=== PATIENT | male | born 1980 | race Caucasian/White ===

== ENCOUNTER 2019-09-30 18:20 | Observation (INO) | payer MEDICAID, OTHER ==
[2019-09-30] VITALS (8 sets, daily range): BP systolic 113–136; BP diastolic 69–83
[~2019-09-30] VITALS: Ht 180.3 cm; Wt 75.9 kg
--- NOTE | 2019-09-30 19:28 | NUR ---
PT HAD 1 MG IV DILAUDED AND 4 MG OF ZOFRAN PRIOR TO TRANSFER (17:17). BOTH EFFECTIVE, PT REPORTS NO PAIN OR NAUSEA AT THIS TIME.
[2019-09-30] MEDS ORDERED: NO HOME MEDS (19:34)
[2019-09-30] MEDS ORDERED: piperacillin/tazo 3.375gm/50ml 50 ML IV ONE (19:45)
--- NOTE | 2019-09-30 19:47 | NUR ---
PT WILL BE GOING TO SURGERY AT 2129. EKG ORDERED.
[2019-09-30] MEDS ORDERED: ondansetron/PF 4mg/2ml inj IV PRN ×2 (20:00→21:55)
[2019-09-30] MEDS ORDERED: morphine 2 MG/ML inj. syringe IV PRN (20:00)
[2019-09-30] MEDS ORDERED: morphine 4 MG/ML inj SYRINge IV PRN (20:00)
[2019-09-30] MEDS ORDERED: labetalol 20mg/4ml (5mg/ml) syringe IV PRN (20:00)
[2019-09-30] MEDS ORDERED: hydrALAZINE 20mg/ml inj. IV PRN (20:00)
[2019-09-30] MEDS ORDERED: ringers solution, lacted 1,000 ML IV SCH (20:00)
[2019-09-30] MEDS ORDERED: fentaNYL/PF 50MCG/1 ML 2ML syringe IV PRN ×2 (20:00)
[2019-09-30] MEDS ORDERED: ringers solution, lacted 1,000 ML IV ONE (20:00)
--- NOTE | 2019-09-30 20:22 | NUR ---
REPORT CALLED TO [facility] IN [facility].
[2019-09-30] MEDS ORDERED: LIDOcaine 1% 30ml preserv. free vial ONE (20:47)
[2019-09-30] MEDS ORDERED: BUPIVAcaine/PF 2.5 mg/ml (0.25%) 30ml vial ONE (20:47)
[2019-09-30] MEDS ORDERED: midazolam 2 mg/2 ml injection ONE (20:51)
[2019-09-30] MEDS ORDERED: fentaNYL/PF 50MCG/1 ML 2ML syringe ONE (20:51)
[2019-09-30] MEDS ORDERED: LIDOcaine 2% (20mg/ml) 5ml vial ONE (20:53)
[2019-09-30] MEDS ORDERED: propofol inj 20 ML IV ONE (20:53)
[2019-09-30] MEDS ORDERED: rocuronium 10mg/ml inj IV ONE (20:54)
[2019-09-30] MEDS ORDERED: neostigmine methylsulfate 1 MG/ML 10ml vial ONE (20:54)
[2019-09-30] MEDS ORDERED: ondansetron/PF 4mg/2ml inj ONE (20:54)
[2019-09-30] MEDS ORDERED: dexamethasone sod phosphate 4mg/ml inj. ONE (20:54)
[2019-09-30] MEDS ORDERED: glycopyrrolate 0.2mg/ml inj ONE (20:54)
[2019-09-30] MEDS ORDERED: Potassium Cl inj 20 MEQ in ringers solution, lacted 1,000 ML IV SCH (21:54)
[2019-09-30] MEDS ORDERED: HYDROcodone/acetaminophen 5mg/325mg tablet PO PRN (21:55)
[2019-09-30] MEDS ORDERED: acetaminophen 1,000mg/100ml IV 100 ML IV ONE (21:55)
--- NOTE | 2019-09-30 22:05 | NUR ---
Received from OR via SURGICAL BED, accompanied by Anesthesiologist DR PEDERSEN and report given by Anesthesiolgist. PT PLACED ON O2 AND MONITOR, S/P LAP APPY, GENERAL ANESTH, PT HAS 3 LARGE BANDIDS TO ABD ALL CDI, ABD SOFT, DENIES ANY PAIN OR NAUSEA AT THIS TIME. WILL CONT TO ASSESS.
--- NOTE | 2019-09-30 22:30 | NUR ---
Patient in room . I have received report from Barbi Schneider RN and had the opportunity to ask questions and assume patient care.
--- NOTE | 2019-09-30 22:35 | NUR ---
Report called to receiving nurse. Transferred via SURGICAL BE TO [id number] . Special Issues communicated to receiving nurse. PT AWAKE AND STATING HE IS HUNGRY, TOLERATING ICE CHIPS AND SIPS OF WATER.
--- NOTE | 2019-09-30 22:40 | NUR ---
Pt transported in personal bed from recovery.
[2019-10-01] VITALS: BP 122/69
[2019-10-01 00:30] VITALS: BP 132/71
[2019-10-01 01:30] VITALS: BP 104/68
[2019-10-01] MEDS: ketorolac trometh. 30mg/ml inj. IV SCH ×2 (02:00→08:00)
[2019-10-01] MEDS: acetaminophen 325mg tablet PO SCH ×2 (02:00→08:00)
[2019-10-01] MEDS: Potassium Cl inj 20 MEQ in ringers solution, lacted 1,000 ML IV SCH ×2 (02:16→08:02)
[2019-10-01 02:30] VITALS: BP 107/65
[2019-10-01 04:22] VITALS: BP 105/65
[2019-10-01] MEDS ORDERED: famotidine/PF 10 mg/ml inj IV ONE (06:00)
--- NOTE | 2019-10-01 06:01 | NUR ---
Problems reprioritized. Patient report given, questions answered & plan of care reviewed with YOLANDA Malik.
--- NOTE | 2019-10-01 06:17 | NUR ---
Problems reprioritized. Patient report given, questions answered & plan of care reviewed with Lizeth Cerna RN.
--- NOTE | 2019-10-01 06:50 | NUR ---
Patient in room [facility]. I have received report from YOLANDA SEO and had the opportunity to ask questions and assume patient care.
[2019-10-01 07:00] VITALS: BP 102/68
--- NOTE | 2019-10-01 10:59 | NUR ---
PATIENT STABLE AND APPROPRIATE FOR DISCHARGE, IVS TAKEN OUT, EDUCATION GIVEN, ALL BELONGINGS ENT WITH PATIENT, PATIENT TAKEN TO LOBBY IN WHEELCHAIR TO AN AWAITING CAR WHERE WILL TAKE PATIENT HOME
== END 2019-10-01 10:59 | disposition home or self-care (01) ==
LOC: ER 18:21 → SUR 3N 20:41
PROVIDERS: ADMIT Surgery; ATTEND Surgery
DX: K35.80 Unspecified acute appendicitis (principal); R11.2 Nausea with vomiting, unspecified; Z87.11 Personal history of peptic ulcer disease
CPT/HCPCS: 44970; 87081; 93005; 96361; 96365; 96375; 99284; G0378; J0131; J1100; J2001; J2250; J2405; J2543; J2704; J2710; J3010; J3480; J3490; J7120; A4215; A4618; A7000